=== PATIENT | male | born 1970 | race Caucasian/White ===

== ENCOUNTER 2017-05-16 06:30 | Emergency (ER) | payer MEDICAID, OTHER ==
[2017-05-16 07:22] VITALS: TEMP 98.1; O2SAT 96
--- NOTE | 2017-05-16 07:57 | EDPHY ---
H & P Stated Complaint: Left sided CARVER, and high BP at home Time Seen by Provider: 05/16/17 07:19 HPI/ROS: CHIEF COMPLAINT: Headache HISTORY OF PRESENT ILLNESS: This patient is a Haitian-speaking 46 year old male with history of hypertension arriving with his family complaining of a bad headache onset yesterday morning. His headache began yesterday morning, localized mostly to the front left area of his head. It has been constant since onset, 710 in severity and he was not able to sleep well last night. Associated with blurred vision and dizziness yesterday evening, resolved now. He denies fever, nausea, vomiting, weakness, diplopia, or difficulty walking. He has no pain elsewhere or further complaints. HPI obtained partially through son translating at bedside. REVIEW OF SYSTEMS: A 10 point review of systems was performed and is negative with the exception of the elements mentioned in the history of present illness. - Personal History Current Tetanus/Diphtheria Vaccine: Unsure Current Tetanus Diphtheria and Acellular Pertussis (TDAP): Unsure Tetanus Vaccine Date: unknown - Medical/Surgical History PMH: Hypertension (Losartan), Hypothyroid Hx Asthma: No Hx Chronic Respiratory Disease: No Hx Diabetes: No Hx Cardiac Disease: No Hx Renal Disease: No Hx Cirrhosis: No Hx Alcoholism: No Hx HIV/AIDS: No Hx Splenectomy or Spleen Trauma: No Other PMH: htn/hypothyroid - Social History Smoking Status: Never smoked Additional Social History: Haitian speaking. Family at bedside. Denies alcohol or tobacco use. - Physical Exam Exam: General Appearance: Alert, no distress Eyes: Pupils equal and round, no conjunctival pallor or injection ENT, Mouth: Mucous membranes moist Neck: Normal inspection Respiratory: Lungs are clear to auscultation Cardiovascular: Regular rate and rhythm Gastrointestinal: Abdomen is soft and non- tender Neurological: Alert, oriented x3, cranial nerves II through XII intact, motor 5 /5, sensory intact to light touch, normal gait Skin: Warm and dry, no rash Extremities: Nontender, no pedal edema Psychiatric: Mood and affect normal Constitutional: Initial Vital Signs Temperature (C) 36.5 C 05/16/17 06:32 Heart Rate 59 L 05/16/17 06:32 Respiratory Rate 18 05/16/17 06:32 Blood Pressure 147/101 H 05/16/17 06:32 O2 Sat (%) 97 05/16/17 06:32 O2 Delivery Mode Room Air Allergies/Adverse Reactions: No Known Allergies Allergy (Verified 07/26/15 19:35) Home Medications: Medication Instructions Recorded Losartan Potassium 07/27/13 Hydrochlorothiazide 07/26/15 Levothyroxine 07/26/15 Albuterol 12/23/15 Albuterol 5 mg/ml INH [Proventil] 5 mg IH Q2-4PRN #1 btl 12/23/15 Medical Decision Making - Diagnostics Imaging Results: Imaging Impressions Head CT 05/16/17 08:02 Impression: 1. There is no acute intracranial abnormality identified on this unenhanced CT evaluation. 2. Sequela of prior remote cysticercosis, similar to a study of 07/26/2015. If there is further clinical concern regarding the patient's symptoms, MR imaging is suggested, if not otherwise contraindicated. Findings were discussed with RUTH CALERO MD at 8:34 AM, on 05/16/2017. Imaging: Discussed imaging studies w/ director call Radiologist ED Course/Re-evaluation: 46 year old male presents with 24 hour history of severe left-sided headache. Plan for CT brain, labs including CBC, BMP. IV established. Plan to administer 10mg IV Decadron, 25mg IV Benadryl, and 10mg IV Reglan for headache relief. 08:[address] Muñoz, radiologist. CT brain is negative for acute intracranial processes. 08:45 The patient is feeling much better following medication administration. His headache has resolved. Neuro exam remains intact. I considered SAH, meningitis, and other serious etiologies of CARVER in this pt, but feel that these etiologies are quite unlikely and that further neuro imaging/lumbar puncture are not indicated. CARVER precautions given. He is comfortable being discharged home. Differential Diagnosis: Headache including but not limited to subarachnoid hemorrhage, migraine headache , tension headache and infectious causes such as meningitis, pharyngitis and sinusitis. - Data Points Laboratory Results: Laboratory Results 05/16/17 07:15 05/16/17 07:15 05/16/17 05/16/17 07:15 07:15 WBC 6.52 10^3/uL 10^3/uL (3.80-9.50) RBC 4.90 10^6/uL 10^6/uL (4.40-6.38) Hgb 15.0 g/dL g/dL (13.7-17.5) Hct 44.2 % % (40.0-51.0) MCV 90.2 fL fL (81.5-99.8) MCH 30.6 pg pg (27.9-34.1) MCHC 33.9 g/dL g/dL (32.4-36.7) RDW 12.1 % % (11.5-15.2) Plt Count 287 10^3/uL 10^3/uL (150-400) MPV 9.5 fL fL (8.7-11.7) Neut % (Auto) 56.6 % % (39.3-74.2) Lymph % (Auto) 27.0 % % (15.0-45.0) [place] % (Auto) 8.7 % % (4.5-13.0) Eos % (Auto) 6.6 % % (0.6-7.6) Baso % (Auto) 0.8 % % (0.3-1.7) Nucleat RBC Rel Count 0.0 % % (0.0-0.2) Absolute Neuts (auto) 3.69 10^3/uL 10^3/uL (1.70-6.50) Absolute Lymphs (auto) 1.76 10^3/uL 10^3/uL (1.00-3.00) Absolute Monos (auto) 0.57 10^3/uL 10^3/uL (0.30-0.80) Absolute Eos (auto) 0.43 10^3/uL H 10^3/uL (0.03-0.40) Absolute Basos (auto) 0.05 10^3/uL 10^3/uL (0.02-0.10) Absolute Nucleated RBC 0.00 10^3/uL 10^3/uL (0-0.01) Immature Gran % 0.3 % % (0.0-1.1) Immature Gran # 0.02 10^3/uL 10^3/uL (0.00-0.10) Sodium 138 mEq/L mEq/L (134-144) Potassium 4.3 mEq/L mEq/L (3.5-5.2) Chloride 104 mEq/L mEq/L (97-110) Carbon Dioxide 23 mEq/l mEq/l (22-31) Anion Gap 11 mEq/L mEq/L (8-16) BUN 14 mg/dL mg/dL (7-23) Creatinine 0.9 mg/dL mg/dL (0.7-1.3) Estimated GFR > 60 Glucose 99 mg/dL mg/dL (70-100) Calcium 9.3 mg/dL mg/dL (8.5-10.4) Medications Given: Discontinued Medications Dexamethasone (Decadron Injection) 10 mg IVP EDNOW ONE Stop: 05/16/17 08:02 Last Admin: 05/16/17 08:08 Dose: 10 mg Diphenhydramine HCl (Benadryl Injection) 25 mg IVP EDNOW ONE Stop: 05/16/17 08:02 Last Admin: 05/16/17 08:07 Dose: 25 mg Metoclopramide HCl (Reglan Injection) 10 mg IVP EDNOW ONE Stop: 05/16/17 08:02 Last Admin: 05/16/17 08:08 Dose: 10 mg Departure - Departure Disposition: Home, Routine, Self-Care Clinical Impression: Headache Qualifiers: Headache type: unspecified Headache chronicity pattern: acute headache Intractability: not intractable Qualified Code(s): R51 - Headache Condition: Good Instructions: Acute Headache (ED) Additional Instructions: 1. Follow-up with your primary care provider this week for further management of symptoms unresolved. 1. Francine de seguimiento con shayan Pedersen de cuidado primario esta semana para manejo de sintomas que no se martínez resuelto. 2. Use Tylenol and/or ibuprofen for pain relief. You may take 600mg Ibuprofen every 6-8 hours with food, or 650mg Tylenol (acetaminophen) every 4-6 hours. No more than 3000mg of Acetaminophen should be taken in 24 hours 2. Dori Tylenol y/o Ibuprofen para alivio de dolor. Puedes dori Ibuprofen 600 mg cada 6-8 horas con comida o Tylenol 650mg (acetaminophen) cada 4-6 horas. No se debe dori mas de 3000mg de Acetaminophen en 24 horas. 3. Return to the emergency department for recurrence of severe headache, nausea , vomiting, numbness, weakness, neck pain, fever or other concerns. 3. Regresar a la rosemarie de [facility] para dolor de [place] que recurre, nausea, vomito, entumecimiento, debilidad, dolor del luisana, fiebre u otras preocupaciones. Referrals: Shavonne Mohamud MD [Medical Doctor] - As per Instructions Print Language: Haitian Report Scribed for: Ruth Calero Report Scribed by: June Muller Date of Report: 05/16/17 Time of Report: 07:54 Physician Review and Approval Statement: 05/16/17 07:54 Portions of this note were transcribed by a medical assisting program director. I personally performed a history, physical exam, medical decision making, and confirmed accuracy of information the transcribed note.
[2017-05-16] MEDS ORDERED: METOCLOPRAMIDE 10 MG/2 ML VIAL IVP ONE (08:01)
[2017-05-16] MEDS ORDERED: DEXAMETHASONE 10 MG/ML VIAL IVP ONE (08:01)
[2017-05-16 08:08] LABS: % IMMATURE GRANULYOCYTES 0.3 % (0.0-1.1); ABSOLUTE IMMATURE GRANULOCYTES 0.02 10^3/uL (0.00-0.10); ADD DIFF? NO; ADD MORPH? NO; ADD SCAN? NO; ATYPICAL LYMPHOCYTE FLAG 10 (0-99); FRAGMENT RBC FLAG 0 (0-99); HEMATOCRIT 44.2 % (40.0-51.0); LEFT SHIFT FLG 0 (0-99); LIPEMIA HEMOLYSIS FLAG 90 (0-99); MEAN CELL HEMOGLOBIN 30.6 pg (27.9-34.1); MEAN CELL HEMOGLOBIN CONCENTR. 33.9 g/dL (32.4-36.7); MEAN CELL VOLUME 90.2 fL (81.5-99.8); MEAN PLATELET VOLUME 9.5 fL (8.7-11.7); PLATELET CLUMPS FLAG 0 (0-99); PLATELET COUNT 287 10^3/uL (150-400); RED CELL DISTRIBUTION WIDTH 12.1 % (11.5-15.2)
[2017-05-16 08:16] LABS: CALCIUM 9.3 mg/dL (8.5-10.4); CREATININE 0.9 mg/dL (0.7-1.3); GLOMERULAR FILTRATION RATE > 60; GLUCOSE 99 mg/dL (70-100)
[2017-05-16 08:21] LABS: ANION GAP 11 mEq/L (8-16); CARBON DIOXIDE 23 mEq/l (22-31); CHLORIDE 104 mEq/L (97-110); POTASSIUM 4.3 mEq/L (3.5-5.2); SODIUM 138 mEq/L (134-144)
[2017-05-16 09:05] VITALS: BP 112/74; PULSE 51; RESP 17
== END 2017-05-16 09:22 | disposition home or self-care (01) ==
DX: R51 Headache (principal); I10 Essential (primary) hypertension
CPT/HCPCS: 96374; J1100; J1200; J2765

== ENCOUNTER 2017-08-23 21:56 | Emergency (ER) | payer MEDICAID, OTHER ==
[2017-08-23 22:04] VITALS: TEMP 97.9
[2017-08-23] MEDS ORDERED: IBUPROFEN 800 MG TAB PO ONE (22:22)
[2017-08-23] MEDS ORDERED: CYCLOBENZAPRINE 10 MG TAB PO ONE (22:22)
[2017-08-23] MEDS ORDERED: diphenhydrAMINE 25 MG CAP PO ONE (22:22)
--- NOTE | 2017-08-23 22:25 | EDPHY ---
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 He reports that if he flexes extensor laterally rotates his neck it worsens the discomfort. He has tried no [id number] medications for the pain. This evening his became concerned as he was recently started on hydrochlorothiazide in addition to his losartan for elevated blood pressures. used to for arm blood pressure cuff and received a reading of 180/100. Patient has been compliant on his medications. He does admit to increased stress in his life. Denies any paresthesias/radiation/LOC/dizziness/ataxia/ weakness. Modifying Factors: None Comment: ROS: see HPI Constitutional: No fever, no chills, no weight loss Eyes: No blurred vision Respiratory: No shortness of breath, no cough Cardiovascular: No chest pain Gastrointestinal: No nausea, no vomiting, no diarrhea Genitourinary: No dysuria Extremities: No myalgias Neurologic: No weakness, no numbness Skin: No rashes Hematologic: No bruising, no bleeding MEDICAL/SURGICAL/SOCIAL HISTORY: Medical history: Hypertension, hyperthyroid, high cholesterol, asthma Surgical history: Denies Social history: . 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 CONSTITUTIONAL: Slightly anxious male, awake and alert, no obvious distress HEENT: Atraumatic and normocephalic, PERRL, EOMI. Tympanic membranes clear. Oropharynx clear, no exudate and moist pink mucosa. Airway patent. No lymphadenopathy. NECK: supple, no midline tenderness, reproducible cervical paraspinous muscle bilaterally tenderness to palpation, pain is reproduced with extremes of flexion , extension, bilateral rotation. flexion 45 degrees, extension 45 degrees, right and left lateral flexion 45 degrees. No meningismus. No carotid bruits. Cardiovascular: Normal S1/S2, regular rate, regular rhythm, without murmur rub or gallop. PULMONARY/CHEST: Symmetrical and nontender. Clear to auscultation bilaterally. Good air movement. No accessory muscle usage. ABDOMEN: Soft, nondistended, nontender, no rebound, no guarding, no peritoneal signs, no masses or organomegaly. No CVAT. EXTREMITIES: 2/2 pulses, strength 5/5, no deformities, no clubbing, no cyanosis or edema. NEUROLOGICAL: no focal neuro deficits. GCS 15. SKIN: Warm and dry, no erythema. no rash. Good capillary refill. Source: Patient, Family (), Body Mechanic (Albanian) Exam Limitations: Language barrier - Personal History Current Tetanus/Diphtheria Vaccine: Yes Tetanus Vaccine Date: unknown - Medical/Surgical History Hx Asthma: Yes Hx Chronic Respiratory Disease: No Hx Diabetes: No Hx Cardiac Disease: No Hx Renal Disease: No Hx Cirrhosis: No Hx Alcoholism: No Hx HIV/AIDS: No Hx Splenectomy or Spleen Trauma: No Other PMH: htn/hyperthyroid. high cholesterol, asthma, - Social History Smoking Status: Never smoked Constitutional: Initial Vital Signs Temperature (C) 36.6 C 08/23/17 22:00 Heart Rate 68 08/23/17 22:00 Respiratory Rate 16 08/23/17 22:00 Blood Pressure 135/98 H 08/23/17 22:00 O2 Sat (%) 97 08/23/17 22:00 O2 Delivery Mode Room Air Allergies/Adverse Reactions: No Known Allergies Allergy (Verified 08/23/17 22:04) Home Medications: Medication Instructions Recorded Losartan Potassium 07/27/13 Hydrochlorothiazide 07/26/15 Levothyroxine 07/26/15 Albuterol 12/23/15 Albuterol 5 mg/ml INH [Proventil] 5 mg IH Q2-4PRN #1 btl 12/23/15 Cyclobenzaprine [Flexeril 10 MG 10 mg PO TID PRN #12 tab 08/23/17 (*)] Medical Decision Making - Diagnostics Imaging Results: Imaging Impressions Cervical Spine X-Ray 08/23/17 22:22 Impression: Mild degenerative disk disease at C5-C6 and C6-C7. Otherwise negative three-view cervical spine. ED Course/Re-evaluation: Cervical x-ray, oral medications ordered Suspect tension headache versus cervical degenerative disc disease back/ cervical spasm Blood pressure 135/98 upon arrival No signs of meningitis/cervical radiculopathy/migraine/sepsis/hypertensive urgency Patient given p.o. Benadryl, Flexeril, ibuprofen with moderate relief of pain Cervical x-ray shows mild degenerative disc disease at C5-C6 and C6-C7 2114: repeat BP at discharge; 120/74 This patient was seen under the supervision of my secondary supervising physician. I evaluated care for this patient independently. Discussed this patient with Dr. Gannon who did not see the patient. Differential Diagnosis: Headache including but not limited to subarachnoid hemorrhage, migraine headache , tension headache and infectious causes such as meningitis, pharyngitis and sinusitis. - Data Points Medications Given: Discontinued Medications Cyclobenzaprine HCl (Flexeril) 10 mg PO EDNOW ONE Stop: 08/23/17 22:23 Last Admin: 08/23/17 22:29 Dose: 10 mg Diphenhydramine HCl (Benadryl) 50 mg PO EDNOW ONE Stop: 08/23/17 22:23 Last Admin: 08/23/17 22:29 Dose: 50 mg Ibuprofen (Motrin) 800 mg PO EDNOW ONE Stop: 08/23/17 22:23 Last Admin: 08/23/17 22:29 Dose: 800 mg Departure - Departure Disposition: Home, Routine, Self-Care Clinical Impression: Degenerative disc disease, cervical, Essential hypertension Condition: Good Instructions: Cervical Strain (ED), Tension Headache (ED), Degenerative Disc Disease (ED) Additional Instructions: Cervical x-ray today shows degenerative disc disease at C5-C6, C6-C7. Take Tylenol 650 mg every 4 hours and/or Ibuprofen 600 mg every 8 hours with food as needed for pain. You may use Flexeril every 8 hr as needed for muscle spasms. Follow up with primary care provider in 1-2 weeks for blood pressure monitoring. Referrals: CRISTOBAL TOWNSEND [Other] - As per Instructions Stand Alone Forms: Work Excuse Prescriptions: Cyclobenzaprine [Flexeril 10 MG (*)] 10 mg PO TID PRN #12 tab PRN Reason: Spasms
[2017-08-23 23:11] VITALS: BP 120/74; PULSE 53; RESP 20; O2SAT 96
== END 2017-08-23 23:22 | disposition home or self-care (01) ==
DX: M50.30 Other cervical disc degeneration, unspecified cervical region (principal); I10 Essential (primary) hypertension; J45.909 Unspecified asthma, uncomplicated